=== PATIENT | male | born 1980 | race African-American/Black ===

== ENCOUNTER 2018-04-01 14:31 | Emergency (ER) | payer SELFPAY ==
[2018-04-01 15:09] LABS: #Basophils 0.1 thou/uL (0.0-0.2); #Eosinphils 0.1 thou/uL (0.0-0.7); #Lymphocytes 1.5 thou/uL (1.20-3.40); #Monocytes 0.8 thou/uL (0.11-0.59); #Neutrophils 7.8 thou/uL (1.40-6.50); %Basophils 0.8 % (0.0-1.0); %Eosinophils 0.7 % (0.0-10.0); %Lymphocytes 14.5 % (21.0-51.0); %Monocytes 7.9 % (0.0-10.0); %Neutrophils 76.2 % (42.0-75.0); Hemoglobin 13.5 g/dL (14.0-18.0); Mean Corpuscular HGB CONC 33.2 g/dL (32.0-36.0); Mean Corpuscular Hemoglobin 32.2 pg (27.0-31.0); Mean Corpuscular Volume 96.8 fL (78.0-98.0); Mean Platelet Volume 7.1 fL (7.4-10.4); Platelet Count 232 thou/uL (130-400); RBC Distribution Width 12.5 % (11.5-14.5); Red Blood Cell (RBC) Count 4.19 mill/uL (4.70-6.10); White Blood Cell (WBC) Count 10.3 thou/uL (4.8-10.8)
--- NOTE | 2018-04-01 15:17 | RAD ---
SINGLE FRONTAL VIEW OF THE CHEST: Date: 04-01-18 History: Chest pain FINDINGS: Cardiac silhouette and pulmonary vasculature are within normal limits. The lungs are clear. Osseous s tructures are intact. IMPRESSION: No acute cardiopulmonary process. POS: KAREEMH
[2018-04-01 15:33] LABS: ALT (SGPT) 21 U/L (8-55); AST (SGOT) 19 U/L (5-34); Albumin 3.5 g/dL (3.5-5.0); Alkaline Phosphatase 84 U/L (40-150); Anion Gap 11 mmol/L (10-20); BUN (Urea Nitrogen) 11 mg/dL (8.9-20.6); Bilirubin, Total 0.2 mg/dL (0.2-1.2); CK (CPK) 326 U/L (30-200); Calc. Creatinine Clearance 0 mL/min (70-130); Calcium 8.6 mg/dL (7.8-10.44); Carbon Dioxide 23 mmol/L (22-29); Chloride 110 mmol/L (98-107); Estimated GFR-MDRD 78; Globulin 3.1 g/dL (2.4-3.5); Glucose 91 mg/dL (70-105); Lipase 29 U/L (8-78); Potassium 4.2 mmol/L (3.5-5.1); Protein, Total 6.6 g/dL (6.0-8.3); Sodium 140 mmol/L (136-145)
[2018-04-01 18:25] LABS: Troponin I Less than 0.010 ng/mL (< 0.028)
--- NOTE | 2018-04-05 15:31 | EKG ---
Test Reason : Blood Pressure : / mmHG Vent. Rate : 069 BPM Atrial Rate : 069 BPM P-R Int : 166 ms QRS Dur : 082 ms QT Int : 372 ms P-R-T Axes : 054 -08 010 degrees QTc Int : 398 ms Normal sinus rhythm with sinus arrhythmia No STEMI Normal ECG Confirmed by FRANCISCO Rascon, MARYLOU ([id number]), news videotape editor ANGELES ELIZABETH ([id number]) on 04/05/2018 3:31:28 PM Referred By: Confirmed By:MARYLOU SINGH M.D.
--- NOTE | 2018-04-05 15:32 | EKG ---
Test Reason : Blood Pressure : / mmHG Vent. Rate : 057 BPM Atrial Rate : 057 BPM P-R Int : 170 ms QRS Dur : 068 ms QT Int : 406 ms P-R-T Axes : 051 -12 -13 degrees QTc Int : 395 ms Sinus bradycardia Minimal voltage criteria for LVH, may be normal variant ST elevation consider lateral injury or acute infarct No STEMI Abnormal ECG Confirmed by FRANCISCO Rascon, MARYLOU ([id number]), editor city [place]GELES ELIZABETH ([id number]) on 04/05/2018 3:32:26 PM Referred By: Confirmed By:MARYLOU SINGH M.D.
== END 2018-04-01 18:53 | disposition home or self-care (01) ==
LOC: ERS 14:31
DX: R07.89 Other chest pain (principal); F17.210 Nicotine dependence, cigarettes, uncomplicated
CPT/HCPCS: 36415; 71045; 80053; 82550; 83690; 84484; 85025; 85379; 93005; 94760; 96360; 96361